=== PATIENT | female | born 2000 | race African-American/Black ===

== ENCOUNTER 2022-07-06 05:28 | Emergency (ER) | payer MEDICAID ==
[~2022-07-06] VITALS: Ht 157.5 cm; Wt 84.0 kg
[2022-07-06] MEDS ORDERED: fentaNYL CITRATE 100 MCG/2 ML VL ONE (06:06)
[2022-07-06] MEDS ORDERED: HEPARIN SODIUM (PORCINE) 5000 UNITS/ML 1ML VIAL ONE (06:06)
[2022-07-06] MEDS ORDERED: ANGIOMAX 250 MG VIAL IV ONE (06:06)
[2022-07-06] MEDS ORDERED: VERAPAMIL 2.5MG/ML INJ 2ML VIAL IV ONE (06:06)
[2022-07-06] MEDS ORDERED: LIDOCAINE 2%HCL (LOCAL ANESTH.) INJ 20ML MDV ONE (06:07)
[2022-07-06] MEDS ORDERED: IODIXANOL 320MG/ML 100ML BTL IV ONE (06:07)
[2022-07-06] MEDS ORDERED: SODIUM CHL 0.9% 0 ML ONE (06:07)
[2022-07-06] MEDS ORDERED: MIDAZOLAM HCL 2MG/2ML 2ml VIAL (1mg/ml) ONE (06:07)
[2022-07-06] MEDS ORDERED: HEPARIN IN NS 1000Units/500mL 0 ML ONE (06:08)
[2022-07-06] MEDS ORDERED: ATROPINE SULF 1 MG/10ml SYR ONE (06:57)
[2022-07-06] MEDS ORDERED: EPINEPHrine HCL 1 MG/10 ML SYRG ONE (06:57)
[2022-07-06] MEDS ORDERED: DexAMETHasone SOD PHOS 4 MG/1ML SDV INJ IM ONE (07:00)
[2022-07-06] MEDS ORDERED: FLUT1SPR5 (07:16)
[2022-07-06] MEDS ORDERED: AMOX-277 PO (07:16)
[2022-07-06] MEDS ORDERED: DexAMETHasone SOD PHOS 10MG/1ML VIAL INJ PO ONE (07:30)
[2022-07-06 08:04] VITALS: BP 128/77
== END 2022-07-06 07:56 | disposition home or self-care (01) ==
LOC: ER 05:30
DX: J01.90 Acute sinusitis, unspecified (principal); Z20.822 Contact with and (suspected) exposure to COVID-19
CPT/HCPCS: 36415; 87426; 87804; 99283; J1100; J2250; Q9967